=== PATIENT | female | born 1950 | race Caucasian/White ===

== ENCOUNTER 2024-01-05 09:29 | Outpatient (AMB) | payer OTHER, SELFPAY ==
--- NOTE | 2024-01-05 09:41 | A.OFFPC_ITS ---
Vital Signs 01/05/24 09:44 Height 5 ft 2 in Weight 126 lb BMI 23.0 BP 132/74 Blood Pressure Location Lt brachial Position Sitting Respiration 12 Pulse 68 Pulse Source Pulse Oximeter Pulse Oximetry (%) 98 Oxygen Delivery Method Room Air Intake Visit Reasons: Follow up Dr from other loc Intake Note: Patient reports she is here to establish care with [facility]. Patient is requesting a referral to Dr. Benson (Ophthomology). Patient is requesting medication refills. Shredder Tender Peat Required: No Accompanied by: Spouse Allergies amoxicillin [From Augmentin] Allergy (Severe, Verified 01/05/24 09:51) Diarrhea clavulanic acid [From Augmentin] Allergy (Severe, Verified 01/05/24 09:51) Diarrhea Medication List - Last Reconciled 01/07/24 by Narda Hair MD amlodipine 2.5 mg PO DAILY hydrochlorothiazide 25 mg PO DAILY timolol 0.5% 1 drp ophthalmic (eye) BID triamterene (Dyrenium) 50 mg PO DAILY vit C,R-Hb-jufop-lutein-zeaxan 250-90-40-1 mg (PreserVision AREDS-2) 1 tab PO BID Tobacco use date assessed: 01/05/24 Fall risk assessment: No Falls in past year Last assessed Fall Risk: 01/05/24 Dental Screening Dental Screen Date: 01/05/24 Did you have a dental visit in the last 12 months?: Yes Did you have a dental problem in the last 6 months where you did not have access to dental care?: No Was dental information given to patient?: Patient has dentist HPI HPI Comments History of Present Illness Details The patient is a 73 year old female with a past medical history of hypertension, hyperlipidemia presenting for follow up CV: on amlodipine 2.5 mg, hydrochlorothiazide 25 mg daily, triamterene. Denies chest pain, headaches, vision changes. She is history of glaucoma followed by ophthalmology Colonoscopy 2022-tubular adenoma with recommended 7 year follow-up Mammogram overdue-refuses ROS CONSTITUTIONAL: Denies weight loss, fever and chills. HEENT: Denies changes in vision and hearing. RESPIRATORY: Denies SOB and cough. CV: Denies palpitations and CP GI: Denies abdominal pain, nausea, vomiting and diarrhea. : Denies dysuria and urinary frequency. MSK: Denies new myalgia and joint pain. SKIN: Denies rash and pruritus. NEUROLOGICAL: Denies headache PSYCHIATRIC: Denies recent changes in mood. PHYSICAL EXAM: GENERAL: Alert and oriented x 3. NAD EYES: EOMI. Anicteric. HENT: Moist mucous membranes. No scleral icterus. No cervical lymphadenopathy. LUNGS: Clear to auscultation bilaterally. CARDIOVASCULAR: Regular rate and rhythm. No murmur. No JVD. ABDOMEN: Soft, non-tender +bs EXTREMITIES: No edema. Non-tender. SKIN: No rashes or lesions. Warm. NEUROLOGIC: No focal neurological deficits. CN II-XII grossly intact PSYCHIATRIC: Cooperative. Appropriate mood and affect [facility] Medical History (Updated 01/07/24 @ 14:36 by Narda Hair MD) History of mammogram Cardiac murmur, unspecified Menopausal disorder Glaucoma (increased eye pressure) Hypertension Screening, deficiency anemia, iron Hyperlipidemia Cataract Surgical History (Updated 01/05/24 @ 12:55 by Cindy Zavala CMA) History of lumpectomy of left breast History of colonoscopy Family History (Updated 01/05/24 @ 12:56 by Cindy Zavala CMA) Mother Heart disease Hypertension Macular degeneration of both eyes Father Heart disease Hypertension Social History (Updated 01/05/24 @ 09:57 by Cindy Zavala CMA) Household Members: Spouse Housing: House Are you a primary respite care provider to a significant other at home: No Do you presently have visiting nurse or other home services: No Alcohol intake: current Alcohol intake frequency: a few times a month Alcohol type: wine Patient Tobacco Use Status: Former Tobacco user Tobacco use type: Cigarette e-Cigarette/Vaping Use: Never Used service: No Current occupational status: retired Cognitive needs: No Hearing needs: No Vision needs: Yes (wears glasses) Questionnaire PHQ-9 Over the last 2 weeks, how often have you been bothered by any of the following problems? 1. Little interest or pleasure in doing things: not at all 2. Feeling down, depressed, or hopeless: not at all 3. Trouble falling or staying asleep, or sleeping too much: not at all 4. Feeling tired or having little energy: not at all 5. Poor appetite or overeating: not at all 6. Feeling bad about yourself - or that you are a failure or have let yourself or your family down: not at all 7. Trouble concentrating on things, such as reading the newspaper or watching television: not at all 8. Moving or speaking so slowly that other people could have noticed. Or the opposite - being so fidgety or restless that you have been moving around a lot more than usual: not at all 9. Thoughts that you would be better off or of hurting yourself in some way: not at all Total score: 0 Depression Screening Interpretation: Negative Depression Screening Done: Yes 09116 - PHQ-9 Billing: Yes Source: Developed by Drs. Matheus Ibarra, Purvi Fields, Berny Salgado and colleagues, with an educational andriy from [employer]. Thrive Questionnaire Date Thrive assessed: 01/05/24 I am a: Patient What is your living situation today?: I have a steady place to live Within the past 12 months, did the food you bought not last and you didn't have the money to get more?: Never true Within the past 12 months, did you worry whether your food would run out before you got money to buy more?: Never true Do you have trouble paying for medicines?: No Do you have trouble getting transportation to medical appointments?: No Do you have trouble paying your heating and electricity bill?: No Do you have trouble taking care of your child, family member or friend?: No Do you have trouble with day-to-day activities such as bathing, preparing meals, shopping, managing finances, etc.?: No Are you currently unemployed and looking for a job?: No Are you interested in more education?: No Please select the resources that you would like help with: None Currently or been in a relationship where the following occur: No concerns reported THRIVE Score: 0 AUDIT C Alcohol Use Questionnaire (AUDIT-C) 1. How often do you have a drink containing alcohol?: 2-3 times a week 2. How many drinks containing alcohol do you have on a typical day when you are drinking?: 1 or 2 3. How often do you have six or more drinks on one occasion?: Never Total Score: 3 SHAWN-7 AMB Questionnaire SHAWN-7 Date SHAWN - 7 assessed: 01/05/24 Feeling nervous, anxious, or on edge: 0 = Not at all Not being able to stop or control worryin = Not at all Worrying too much about different things: 0 = Not at all Trouble relaxin = Not at all Being so restless that it is hard to sit still: 0 = Not at all Becoming easily annoyed or irritable: 0 = Not at all Feeling afraid as if something awful might happen: 0 = Not at all Total SHAWN-7 score (0-4 normal; 5-9 mild; 10-14 moderate; 15-21 severe): 0 Source: Developed by Drs. Matheus Ibarra, Purvi Fields, Berny Salgado and colleagues, with an educational andriy from [employer]. SHAWN-7 Assessment Billing SHAWN-7 Assessment Tool: SHAWN-7 Assessment 34207 Physical exam (Primary Care) Vital Signs: Last Vital Signs Pulse 68 01/05/24 09:44 Resp 12 01/05/24 09:44 BP 132/74 01/05/24 09:44 Pulse Ox 98 01/05/24 09:44 Oxygen Delivery Method Room Air 01/05/24 09:44 BMI result Body Mass Index 23.0 Tobacco/Smoking Status: Tobacco use Status Tobacco use date assessed 01/05/24 01/05/24 09:57 Patient Tobacco Use Status Former Tobacco user 01/05/24 09:57 Tobacco use type Cigarette 01/05/24 09:57 e-Cigarette/Vaping Use Never Used 01/05/24 09:57 PHQ-9: PHQ-9 Score PHQ-9: Total score 0 01/05/24 12:56 Depression Screening Interpretation: Negative Thrive Assessment: Date of Thrive Assessment Date Thrive assessed 01/05/24 01/05/24 11:31 Currently or been in a relationship where the following occur: No concerns reported Assessment and Plan Assessment & Plan (1) Hypertension: Code(s): I10 - Essential (primary) hypertension Qualifiers: Hypertension type: primary hypertension Qualified Code(s): I10 - Essential (primary) hypertension Plan: Adequately controlled Continue current medications Labs ordered. Return in six months for AWV (2) Glaucoma (increased eye pressure): Code(s): H40.9 - Unspecified glaucoma Qualifiers: Glaucoma type: unspecified Laterality: unspecified laterality Qualified Code(s): H40.9 - Unspecified glaucoma Plan: Referred to optho Orders: Orders Complete Blood Count Auto Diff 01/05/24 E78.5 - Hyperlipidemia, unspecified, I10 - Essential (primary) hypertension, Z13.0 - Encounter for screening for diseases of the blood and blood-forming organs and certain disorders involving the immune mechanism Comprehensive Met. Panel 01/05/24 E78.5 - Hyperlipidemia, unspecified, I10 - Essential (primary) hypertension, Z13.0 - Encounter for screening for diseases of the blood and blood-forming organs and certain disorders involving the immune mechanism Lipid Panel 01/05/24 E78.5 - Hyperlipidemia, unspecified, I10 - Essential (primary) hypertension, Z13.0 - Encounter for screening for diseases of the blood and blood-forming organs and certain disorders involving the immune mechanism Referrals Ophthalmology Referral H26.9 - Unspecified cataract Medications: New amlodipine 2.5 mg PO DAILY 90 tabs 3RF hydrochlorothiazide 25 mg PO DAILY 90 tabs 3RF triamterene (Dyrenium) 50 mg PO DAILY 90 caps 3RF Coding Level of Care Code Est Pt Level 4 (66858) Complex EM visit Add On G2211 Diagnoses Primary hypertension I10 Hypertension type: primary hypertension Glaucoma, unspecified glaucoma type, unspecified laterality H40.9 Glaucoma type: unspecified Laterality: unspecified laterality Additional Codes SHAWN-7 Assessment Billing - SHAWN-7 Assessment Tool: SHAWN-7 Assessment 85645 ([id number])
[2024-01-05 09:44] VITALS: BP 132/74; PULSE 68; RESP 12; O2SAT 98; BMI 23.0
== END 2024-01-05 10:43 | disposition home or self-care (01) ==
PROVIDERS: PCP Internal Medicine; Visit Provider Internal Medicine
DX: I10 Essential (primary) hypertension (principal); H40.9 Unspecified glaucoma
CPT/HCPCS: 99214

== ENCOUNTER 2024-01-05 11:03 | Outpatient (REF) | payer OTHER, SELFPAY ==
[2024-01-05 14:03] LABS: MANUAL DIFF FLAG NO
[2024-01-05 14:07] LABS: Basophils Percent Auto 0.3 % (0-2); Eosinophils Absolute Auto 0.1 X10*3/uL (0.0-0.4); Eosinophils Percent Auto 1.2 % (0-4); Hematocrit 41.5 % (37.0-47.0); Hemoglobin 14.9 g/dl (12.0-16.0); Imm Gran Abs Auto 0.02 X10*3/uL (0.00-0.03); Imm Gran Pct Auto 0.3 % (0.0-0.4); Lymphocytes Absolute Auto 1.5 X10*3/uL (1.2-4.9); Mean Corpuscular HGB Conc 35.9 g/dl (31.0-35.0); Mean Corpuscular Hemoglobin 32.5 pg (27.0-33.0); Mean Corpuscular Volume 90.4 fL (80.0-98.0); Mean Platelet Volume 9.9 fL (9.4-12.3); Monocytes Absolute Auto 0.5 X10*3/uL (0.1-1.2); Monocytes Percent Auto 9.2 % (2-11); Neutrophils Absolute Auto 3.7 x10*3/uL (2.0-8.3); Platelet Count 244 X10*3/uL (160-400); Red Blood Count 4.59 X10*6/uL (4.20-5.50); Red Cell Distribution Width 12.5 % (11.0-16.0); White Blood Count 5.9 X10*3/uL (4.8-10.8)
[2024-01-05 14:34] LABS: Alanine Aminotransferase 25 U/L (0-31); Albumin Level 4.4 g/dL (3.5-5.0); Alkaline Phosphatase 94 U/L (39-117); Anion Gap 14 (12-20); Aspartate Amino Transferase 24 U/L (5-31); Bilirubin Total 0.6 mg/dL (0.0-1.0); Blood Urea Nitrogen 18 mg/dL (9-16); Calcium 10.3 mg/dL (8.4-10.2); Carbon Dioxide 29 mmol/L (22-29); Chloride 101 mmol/L (96-108); Cholesterol 234 mg/dL (<200); Estimated Glomerular Filt Rate 52; Glucose Random 99 mg/dL (60-115); HDL Cholesterol 58 mg/dL (>40); LDL Cholesterol Calculated 153 mg/dL (<100); Potassium 3.6 mmol/L (3.3-5.1); Sodium 140 mmol/L (135-145); Total Protein 7.6 g/dL (6.5-8.0); Triglycerides 115 mg/dL (<150)
== END 2024-01-05 11:04 | disposition home or self-care (01) ==
LOC: HO.WFDLDS 11:03
PROVIDERS: Visit Provider Internal Medicine
DX: I10 Essential (primary) hypertension (principal); E78.5 Hyperlipidemia, unspecified; Z13.0 Encounter for screening for diseases of the blood and blood-forming organs and certain disorders involving the immune mechanism
CPT/HCPCS: 36415; 80053; 80061; 85025

== ENCOUNTER 2024-07-15 10:30 | Outpatient (AMB) | payer OTHER, SELFPAY ==
--- NOTE | 2024-07-15 10:39 | AM.OFFVISMDC ---
Intake Intake Visit Reasons: AWV Intake Note: Medical wellness visit Board Mixer Tender Required: No Allergies amoxicillin [From Augmentin] Allergy (Severe, Verified 01/05/24 09:51) Diarrhea clavulanic acid [From Augmentin] Allergy (Severe, Verified 01/05/24 09:51) Diarrhea HPI HPI Comments History of Present Illness Details The patient is a 73 year old female with a past medical history of hypertension, hyperlipidemia presenting for follow up CV: on amlodipine 2.5 mg, hydrochlorothiazide 25 mg daily, triamterene. Denies chest pain, headaches, vision changes. She is history of glaucoma followed by ophthalmology Colonoscopy 2022-tubular adenoma with recommended 7 year follow-up Mammogram overdue-refuses ROS CONSTITUTIONAL: Denies weight loss, fever and chills. HEENT: Denies changes in vision and hearing. RESPIRATORY: Denies SOB and cough. CV: Denies palpitations and CP GI: Denies abdominal pain, nausea, vomiting and diarrhea. : Denies dysuria and urinary frequency. MSK: Denies new myalgia and joint pain. SKIN: Denies rash and pruritus. NEUROLOGICAL: Denies headache PSYCHIATRIC: Denies recent changes in mood. PHYSICAL EXAM: GENERAL: Alert and oriented x 3. NAD EYES: EOMI. Anicteric. HENT: Moist mucous membranes. No scleral icterus. No cervical lymphadenopathy. LUNGS: Clear to auscultation bilaterally. CARDIOVASCULAR: Regular rate and rhythm. No murmur. No JVD. ABDOMEN: Soft, non-tender +bs EXTREMITIES: No edema. Non-tender. SKIN: No rashes or lesions. Warm. NEUROLOGIC: No focal neurological deficits. CN II-XII grossly intact PSYCHIATRIC: Cooperative. Appropriate mood and affect [facility] Medical History (Updated 01/07/24 @ 14:36 by Narda Hair MD) History of mammogram Cardiac murmur, unspecified Menopausal disorder Glaucoma (increased eye pressure) Hypertension Screening, deficiency anemia, iron Hyperlipidemia Cataract Surgical History (Updated 01/05/24 @ 12:55 by Cindy Zavala CMA) History of lumpectomy of left breast History of colonoscopy Family History (Updated 01/05/24 @ 12:56 by Cindy Zavala CMA) Mother Heart disease Hypertension Macular degeneration of both eyes Father Heart disease Hypertension Social History (Updated 01/05/24 @ 09:57 by Cindy Zavala CMA) Household Members: Spouse Housing: House Are you a primary furnace caretaker to a significant other at home: No Do you presently have visiting nurse or other home services: No 75 years or older and lives alone: No Alcohol intake: current Alcohol intake frequency: a few times a month Alcohol type: wine Patient Tobacco Use Status: Former Tobacco user Tobacco use type: Cigarette e-Cigarette/Vaping Use: Never Used service: No Current occupational status: retired Cognitive needs: No Hearing needs: No Vision needs: Yes (wears glasses) Coding
--- NOTE | 2024-07-15 10:49 | MHC.PC.OV ---
Vital Signs 07/15/24 10:51 Height 5 ft 2 in Weight 127 lb 6 oz BMI 23.3 BP 138/88 Blood Pressure Location Lt brachial Position Sitting Pulse 67 Pulse Source Pulse Oximeter Pulse Oximetry (%) 96 Oxygen Delivery Method Room Air Intake Visit Reasons: AWV Intake Note: Medical wellness visit Chemical Equipment Controller Required: No Allergies amoxicillin [From Augmentin] Allergy (Severe, Verified 07/15/24 10:49) Diarrhea clavulanic acid [From Augmentin] Allergy (Severe, Verified 07/15/24 10:49) Diarrhea Tobacco use date assessed: 07/15/24 Fall risk assessment: No Falls in past year Last assessed Fall Risk: 07/15/24 Dental Screening Dental Screen Date: 01/05/24 HPI HPI Comments History of Present Illness Details The patient is a 73 year old female with a past medical history of hypertension, hyperlipidemia presenting for phsyical exam CV: on amlodipine 2.5 mg, hydrochlorothiazide 25 mg daily, triamterene. BP 109-148/70-78. Denies chest pain, headaches, vision changes. She is history of glaucoma followed by ophthalmology, Dr Benson needs referrals annually Colonoscopy 2022-tubular adenoma with recommended 7 year follow-up Mammogram overdue-refuses ROS CONSTITUTIONAL: Denies weight loss, fever and chills. HEENT: Denies changes in vision and hearing. RESPIRATORY: Denies SOB and cough. CV: Denies palpitations and CP GI: Denies abdominal pain, nausea, vomiting and diarrhea. : Denies dysuria and urinary frequency. MSK: Denies new myalgia and joint pain. SKIN: Denies rash and pruritus. NEUROLOGICAL: Denies headache PSYCHIATRIC: Denies recent changes in mood. PHYSICAL EXAM: GENERAL: Alert and oriented x 3. NAD EYES: EOMI. Anicteric. HENT: Moist mucous membranes. No scleral icterus. No cervical lymphadenopathy. LUNGS: Clear to auscultation bilaterally. CARDIOVASCULAR: Regular rate and rhythm. No murmur. No JVD. ABDOMEN: Soft, non-tender +bs EXTREMITIES: No edema. Non-tender. SKIN: No rashes or lesions. Warm. NEUROLOGIC: No focal neurological deficits. CN II-XII grossly intact PSYCHIATRIC: Cooperative. Appropriate mood and affect [facility] Medical History History of mammogram Cardiac murmur, unspecified Menopausal disorder Glaucoma (increased eye pressure) Hypertension Screening, deficiency anemia, iron Hyperlipidemia Cataract Surgical History History of lumpectomy of left breast History of colonoscopy Family History Mother Heart disease Hypertension Macular degeneration of both eyes Father Heart disease Hypertension Social History Household Members: Spouse Housing: House Are you a primary district manager primary care sales to a significant other at home: No Do you presently have visiting nurse or other home services: No 75 years or older and lives alone: No Alcohol intake: current Alcohol intake frequency: a few times a month Alcohol type: wine Patient Tobacco Use Status: Former Tobacco user Tobacco use type: Cigarette e-Cigarette/Vaping Use: Never Used service: No Current occupational status: retired Cognitive needs: No Hearing needs: No Vision needs: Yes (wears glasses) Questionnaire Thrive Questionnaire Date Thrive assessed: 01/05/24 AUDIT C Alcohol Use Questionnaire (AUDIT-C) 2. How many drinks containing alcohol do you have on a typical day when you are drinking?: 1 or 2 3. How often do you have six or more drinks on one occasion?: Never Total Score: 0 SHAWN-7 AMB Questionnaire SHAWN-7 Date SHAWN - 7 assessed: 01/05/24 Source: Developed by Drs. Mtaheus Ibarra, Purvi Fields, Berny Salgado and colleagues, with an educational andriy from [employer]. Physical exam (Primary Care) Vital Signs: Last Vital Signs Pulse 67 07/15/24 10:51 BP 138/88 07/15/24 10:51 Pulse Ox 96 07/15/24 10:51 Oxygen Delivery Method Room Air 07/15/24 10:51 BMI result Body Mass Index 23.3 Tobacco/Smoking Status: Tobacco use Status Tobacco use date assessed 07/15/24 07/15/24 10:53 Patient Tobacco Use Status Former Tobacco user 07/15/24 11:03 Tobacco use type Cigarette 07/15/24 11:03 e-Cigarette/Vaping Use Never Used 07/15/24 11:03 Thrive Assessment: Date of Thrive Assessment Date Thrive assessed 01/05/24 07/15/24 10:53 Coding Level of Care Code Est Pt Level 4 (24559) Est Pt Prev Care >65y(67636) Diagnoses Physical exam Z00.00 Primary hypertension I10 Hypertension type: primary hypertension Assessment & Plan Assessment & Plan (1) Physical exam: Code(s): Z00.00 - Encounter for general adult medical examination without abnormal findings Category: Medical Plan: Preventive measures for age discussed Chronic medical conditions, interval history reviewed. Medications reconciled Refuses mammogram Colonoscopy is utd (2) Hypertension: Code(s): I10 - Essential (primary) hypertension Category: Medical Qualifiers: Hypertension type: primary hypertension Qualified Code(s): I10 - Essential (primary) hypertension Plan: adequately controlled on current medications Orders: Orders Complete Blood Count Auto Diff Today E78.5 - Hyperlipidemia, unspecified, I10 - Essential (primary) hypertension, Z13.0 - Encounter for screening for diseases of the blood and blood-forming organs and certain disorders involving the immune mechanism Comprehensive Met. Panel Today E78.5 - Hyperlipidemia, unspecified, I10 - Essential (primary) hypertension, Z13.0 - Encounter for screening for diseases of the blood and blood-forming organs and certain disorders involving the immune mechanism Lipid Panel Today E78.5 - Hyperlipidemia, unspecified, I10 - Essential (primary) hypertension, Z13.0 - Encounter for screening for diseases of the blood and blood-forming organs and certain disorders involving the immune mechanism Referrals Ophthalmology Referral H40.9 - Unspecified glaucoma
[2024-07-15 10:51] VITALS: BP 138/88; PULSE 67; O2SAT 96; BMI 23.3
== END 2024-07-15 11:44 | disposition home or self-care (01) ==
PROVIDERS: PCP Internal Medicine; Visit Provider Internal Medicine
DX: Z00.00 Encounter for general adult medical examination without abnormal findings (principal); I10 Essential (primary) hypertension

== ENCOUNTER 2024-07-15 11:48 | Outpatient (REF) | payer OTHER, SELFPAY ==
[2024-07-15 14:31] LABS: MANUAL DIFF FLAG NO
[2024-07-15 14:33] LABS: Basophils Percent Auto 0.3 % (0-2); Eosinophils Absolute Auto 0.1 X10*3/uL (0.0-0.4); Hematocrit 42.9 % (37.0-47.0); Imm Gran Abs Auto 0.02 X10*3/uL (0.00-0.03); Imm Gran Pct Auto 0.3 % (0.0-0.4); Lymphocytes Absolute Auto 1.8 X10*3/uL (1.2-4.9); Lymphocytes Percent Auto 29.2 % (20-40); Mean Corpuscular Hemoglobin 31.4 pg (27.0-33.0); Mean Corpuscular Volume 89.9 fL (80.0-98.0); Mean Platelet Volume 9.8 fL (9.4-12.3); Monocytes Absolute Auto 0.6 X10*3/uL (0.1-1.2); Monocytes Percent Auto 8.9 % (2-11); Neutrophils Absolute Auto 3.8 x10*3/uL (2.0-8.3); Neutrophils Percent Auto 60.3 % (45-73); Platelet Count 278 X10*3/uL (160-400); Red Blood Count 4.77 X10*6/uL (4.20-5.50); Red Cell Distribution Width 12.4 % (11.0-16.0); White Blood Count 6.3 X10*3/uL (4.8-10.8)
[2024-07-15 14:55] LABS: Alanine Aminotransferase 22 U/L (0-31); Albumin Level 4.4 g/dL (3.5-5.0); Alkaline Phosphatase 98 U/L (39-117); Anion Gap 12 (12-20); Aspartate Amino Transferase 27 U/L (5-31); Bilirubin Total 0.6 mg/dL (0.0-1.0); Blood Urea Nitrogen 17 mg/dL (9-16); Calcium 10.1 mg/dL (8.4-10.2); Carbon Dioxide 28 mmol/L (22-29); Chloride 103 mmol/L (96-108); Cholesterol 213 mg/dL (<200); Estimated Glomerular Filt Rate > 60; Glucose Random 94 mg/dL (60-115); HDL Cholesterol 57 mg/dL (>40); LDL Cholesterol Calculated 142 mg/dL (<100); Potassium 3.8 mmol/L (3.3-5.1); Sodium 139 mmol/L (135-145); Total Protein 7.8 g/dL (6.5-8.0); Triglycerides 74 mg/dL (<150)
== END 2024-07-15 11:49 | disposition home or self-care (01) ==
LOC: HO.WFDLDS 11:48
PROVIDERS: Visit Provider Internal Medicine
DX: I10 Essential (primary) hypertension (principal); E78.5 Hyperlipidemia, unspecified; Z13.0 Encounter for screening for diseases of the blood and blood-forming organs and certain disorders involving the immune mechanism
CPT/HCPCS: 36415; 80053; 80061; 85025

== ENCOUNTER 2024-12-27 08:40 | Outpatient (AMB) | payer OTHER, SELFPAY ==
--- NOTE | 2024-12-27 08:47 | A.OFFPC_ITS ---
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 Required: No Allergies amoxicillin (From Augmentin) Allergy (Severe, Verified 12/27/24 08:48) Diarrhea clavulanic acid (From Augmentin) Allergy (Severe, Verified 12/27/24 08:48) Diarrhea Tobacco use date assessed: 12/27/24 Fall risk assessment: No Falls in past year Last assessed Fall Risk: 12/27/24 Dental Screening Dental Screen Date: 12/27/24 Did you have a dental visit in the last 12 months?: Yes Was dental information given to patient?: Patient has dentist HPI HPI Comments History of Present Illness Details The patient is a 74 year old female with a past medical history of hypertension, hyperlipidemia presenting for follow up CV: on amlodipine 2.5 mg, hydrochlorothiazide 25 mg daily, triamterene. Home BP 106-136/63-76. Denies chest pain, headaches, vision changes. She is history of glaucoma followed by ophthalmology, Dr Benson needs referrals annually Colonoscopy 2022-tubular adenoma with recommended 7 year follow-up Mammogram overdue-refuses ROS CONSTITUTIONAL: Denies weight loss, fever and chills. HEENT: Denies changes in vision and hearing. RESPIRATORY: Denies SOB and cough. CV: Denies palpitations and CP GI: Denies abdominal pain, nausea, vomiting and diarrhea. : Denies dysuria and urinary frequency. MSK: Denies new myalgia and joint pain. SKIN: Denies rash and pruritus. NEUROLOGICAL: Denies headache PSYCHIATRIC: Denies recent changes in mood. PHYSICAL EXAM: GENERAL: Alert and oriented x 3. NAD EYES: EOMI. Anicteric. HENT: Moist mucous membranes. No scleral icterus. No cervical lymphadenopathy. LUNGS: Clear to auscultation bilaterally. CARDIOVASCULAR: Regular rate and rhythm. No murmur. No JVD. ABDOMEN: Soft, non-tender +bs EXTREMITIES: No edema. Non-tender. SKIN: No rashes or lesions. Warm. NEUROLOGIC: No focal neurological deficits. CN II-XII grossly intact PSYCHIATRIC: Cooperative. Appropriate mood and affect [facility] Medical History History of mammogram Cardiac murmur, unspecified Menopausal disorder Glaucoma (increased eye pressure) Hypertension Screening, deficiency anemia, iron Hyperlipidemia Cataract Surgical History History of lumpectomy of left breast History of colonoscopy Family History Mother Heart disease Hypertension Macular degeneration of both eyes Father Heart disease Hypertension Social History Household Members: Spouse Housing: House Are you a primary child care teacher to a significant other at home: No Do you presently have visiting nurse or other home services: No 75 years or older and lives alone: No Alcohol intake: current Alcohol intake frequency: a few times a month Alcohol type: wine Patient Tobacco Use Status: Former Tobacco user Tobacco use type: Cigarette e-Cigarette/Vaping Use: Never Used service: No Current occupational status: retired Cognitive needs: No Hearing needs: No Vision needs: Yes (wears glasses) Questionnaire PHQ-9 Over the last 2 weeks, how often have you been bothered by any of the following problems? 1. Little interest or pleasure in doing things: not at all 2. Feeling down, depressed, or hopeless: not at all 3. Trouble falling or staying asleep, or sleeping too much: not at all 4. Feeling tired or having little energy: not at all 5. Poor appetite or overeating: not at all 6. Feeling bad about yourself - or that you are a failure or have let yourself or your family down: not at all 7. Trouble concentrating on things, such as reading the newspaper or watching television: not at all 8. Moving or speaking so slowly that other people could have noticed. Or the opposite - being so fidgety or restless that you have been moving around a lot more than usual: not at all 9. Thoughts that you would be better off or of hurting yourself in some way: not at all Total score: 0 Depression Screening Interpretation: Negative Depression Screening Done: Yes 31138 - PHQ-9 Billing: Yes Source: Developed by Drs. Matheus Ibarra, Purvi Fields, Berny Salgado and colleagues, with an educational andriy from [email or web address]. Thrive Questionnaire Date Thrive assessed: 12/20/24 I am a: Patient What is your living situation today?: I have a steady place to live Within the past 12 months, did the food you bought not last and you didn't have the money to get more?: Never true Within the past 12 months, did you worry whether your food would run out before you got money to buy more?: Never true Do you have trouble paying for medicines?: No Do you have trouble getting transportation to medical appointments?: No Do you have trouble paying your heating and electricity bill?: No Do you have trouble taking care of your child, family member or friend?: No Do you have trouble with day-to-day activities such as bathing, preparing meals, shopping, managing finances, etc.?: No Are you currently unemployed and looking for a job?: No Are you interested in more education?: No Please select the resources that you would like help with: None Currently or been in a relationship where the following occur: No concerns reported THRIVE Score: 0 AUDIT C Alcohol Use Questionnaire (AUDIT-C) 1. How often do you have a drink containing alcohol?: 4 or more times a week 2. How many drinks containing alcohol do you have on a typical day when you are drinking?: 1 or 2 3. How often do you have six or more drinks on one occasion?: Never Total Score: 4 SHAWN-7 AMB Questionnaire SHAWN-7 Date SHAWN - 7 assessed: 01/05/24 Feeling nervous, anxious, or on edge: 0 = Not at all Not being able to stop or control worryin = Not at all Worrying too much about different things: 0 = Not at all Trouble relaxin = Not at all Being so restless that it is hard to sit still: 0 = Not at all Becoming easily annoyed or irritable: 0 = Not at all Feeling afraid as if something awful might happen: 0 = Not at all Total SHAWN-7 score (0-4 normal; 5-9 mild; 10-14 moderate; 15-21 severe): 0 Source: Developed by Drs. Matheus Ibarra, Purvi Fields, Berny Salgado and colleagues, with an educational andriy from [employer]. Physical exam (Primary Care) Vital Signs: Last Vital Signs Temp 98.3 F 12/27/24 08:52 Pulse 78 12/27/24 08:52 Resp 14 12/27/24 08:52 BP 144/84 H 12/27/24 09:02 Pulse Ox 99 12/27/24 08:52 Oxygen Delivery Method Room Air 12/27/24 08:52 BMI result Body Mass Index 23.0 Tobacco/Smoking Status: Tobacco use Status Tobacco use date assessed 12/27/24 12/27/24 08:57 Patient Tobacco Use Status Former Tobacco user 12/27/24 08:57 Tobacco use type Cigarette 12/27/24 08:57 e-Cigarette/Vaping Use Never Used 12/27/24 08:57 PHQ-9: PHQ-9 Score PHQ-9: Total score 0 12/27/24 08:57 Depression Screening Interpretation: Negative Thrive Assessment: Date of Thrive Assessment Date Thrive assessed 12/20/24 12/27/24 08:57 Currently or been in a relationship where the following occur: No concerns reported Coding Level of Care Code Est Pt Level 4 (24338) Complex EM visit Add On G2211 Diagnoses Primary hypertension I10 Hypertension type: primary hypertension Pure hypercholesterolemia E78.00 Hyperlipidemia type: pure hypercholesterolemia Additional Codes PHQ-9 - 58183 - PHQ-9 Billing: Yes ([id number]) Assessment & Plan Assessment & Plan (1) Hypertension: Code(s): I10 - Essential (primary) hypertension Category: Medical Qualifiers: Hypertension type: primary hypertension Qualified Code(s): I10 - Essential (primary) hypertension (2) Hyperlipidemia: Code(s): E78.5 - Hyperlipidemia, unspecified Category: Medical Qualifiers: Hyperlipidemia type: pure hypercholesterolemia Qualified Code(s): E78.00 - Pure hypercholesterolemia, unspecified Plan Hypertension-well controlled on current medication. Hyperlipidemia-labs ordered. Diet low in saturated fat. Increase exercise Glaucoma-continue follow up with Dr Benson Refuses further mammo Orders: Orders Lipid Panel Today E78.5 - Hyperlipidemia, unspecified, I10 - Essential (primary) hypertension Comprehensive Met. Panel Today E78.5 - Hyperlipidemia, unspecified, I10 - Essential (primary) hypertension Medications: Refilled amlodipine 2.5 mg PO DAILY 90 tabs 3RF hydrochlorothiazide 25 mg PO DAILY 90 tabs 3RF triamterene (Dyrenium) 50 mg PO DAILY 90 caps 3RF
[2024-12-27 08:52] VITALS: BP 154/90; PULSE 78; RESP 14; TEMP 36.8; O2SAT 99; BMI 23.0
[2024-12-27 09:02] VITALS: BP 144/84
[2024-12-27 09:16] VITALS: BP 119/63
== END 2024-12-27 09:23 | disposition home or self-care (01) ==
LOC: HO.HMCFM 08:41
PROVIDERS: PCP Internal Medicine; Visit Provider Internal Medicine
DX: I10 Essential (primary) hypertension (principal); E78.00 Pure hypercholesterolemia, unspecified

== ENCOUNTER → 2024-12-27 08:40 | Outpatient (BNVA) | payer OTHER, SELFPAY | PROVIDERS: PCP Internal Medicine; Visit Provider Internal Medicine | DX: I10 Essential (primary) hypertension (principal); E78.00 Pure hypercholesterolemia, unspecified; H40.9 Unspecified glaucoma; Z79.899 Other long term (current) drug therapy; Z13.31 Encounter for screening for depression | CPT/HCPCS: 96127; 99212 ==

== ENCOUNTER 2024-12-27 09:30 | Outpatient (REF) | payer OTHER, SELFPAY ==
[2024-12-27 12:03] LABS: Alanine Aminotransferase 28 U/L (0-31); Albumin Level 4.5 g/dL (3.5-5.0); Alkaline Phosphatase 95 U/L (39-117); Anion Gap 13 (12-20); Aspartate Amino Transferase 34 U/L (5-31); Blood Urea Nitrogen 11 mg/dL (9-16); Calcium 9.7 mg/dL (8.4-10.2); Carbon Dioxide 29 mmol/L (22-29); Chloride 101 mmol/L (96-108); Cholesterol 254 mg/dL (<200); Estimated Glomerular Filt Rate 57; HDL Cholesterol 50 mg/dL (>40); Potassium 4.1 mmol/L (3.3-5.1); Sodium 139 mmol/L (135-145); Total Protein 7.4 g/dL (6.5-8.0); Triglycerides 121 mg/dL (<150)
== END 2024-12-27 09:31 | disposition home or self-care (01) ==
LOC: HO.WFDLDS 09:30
PROVIDERS: Visit Provider Internal Medicine
DX: I10 Essential (primary) hypertension (principal); E78.5 Hyperlipidemia, unspecified
CPT/HCPCS: 36415; 80053; 80061